=== PATIENT | female | born 1955 | race Caucasian/White ===

== ENCOUNTER → 2021-01-13 | Outpatient (CLI) | LOC: M LABSMTC 13:17 | PROVIDERS: ATTEND Anesthesiology | DX: Z01.818 Encounter for other preprocedural examination (principal); Z11.52 Encounter for screening for COVID-19 ==

== ENCOUNTER → 2021-01-20 | Outpatient (REF) | payer MEDICARE, MEDICAID ==
[2021-01-23 17:07] LABS: TOPIRAMATE LEVEL 22.3 ug/mL (2.0-25.0)
== END ==
LOC: M SHH 15:50
PROVIDERS: ATTEND Physician Assistant Medical
DX: R56.9 Unspecified convulsions (principal); Z51.81 Encounter for therapeutic drug level monitoring; Z79.899 Other long term (current) drug therapy

== ENCOUNTER → 2021-01-20 | Outpatient (REF) | payer MEDICARE, MEDICAID ==
[2021-01-20 16:19] LABS: BASO % 0.2 % (0.0-1.0); EOS % 0.4 % (0.0-3.0); HEMATOCRIT 29.4 % (36.0-47.0); HEMOGLOBIN 8.6 g/dl (12.0-15.5); LYMPH # 0.8 10^3/uL (1.5-5.0); LYMPH % 16.4 % (24.0-44.0); MEAN CORPUSCULAR HEMOGLOBIN 28.8 pg (27.0-33.0); MEAN CORPUSCULAR HGB CONC 29.3 g/dl (32.0-36.5); MEAN CORPUSCULAR VOLUME 98.3 fl (80.0-96.0); MONO # 0.4 10^3/uL (0.0-0.8); MONO % 8.1 % (2.0-8.0); NEUTROPHILS # 3.6 10^3/uL (1.5-8.5); NEUTROPHILS % 71.7 % (36.0-66.0); PLATELET COUNT, AUTOMATED 160 10^3/uL (150-450); RED BLOOD COUNT 2.99 10^6/uL (4.00-5.40); WHITE BLOOD COUNT 5.1 10^3/uL (4.0-10.0)
[2021-01-20 16:52] LABS: ALBUMIN 2.8 GM/DL (3.2-5.2); BILIRUBIN,TOTAL 0.5 MG/DL (0.2-1.0); CALCIUM LEVEL 8.8 MG/DL (8.8-10.2); CREATININE FOR GFR 1.08 MG/DL (0.55-1.30); GLOMERULAR FILTRATION RATE 54.4 (>45); POTASSIUM SERUM 3.8 MEQ/L (3.5-5.1); TOTAL PROTEIN 6.5 GM/DL (6.4-8.2)
== END ==
LOC: M SHH 15:53
PROVIDERS: ATTEND Internal Medicine Hematology & Oncology
DX: C79.31 Secondary malignant neoplasm of brain (principal); I63.139 Cerebral infarction due to embolism of unspecified carotid artery; G91.9 Hydrocephalus, unspecified; G40.109 Localization-related (focal) (partial) symptomatic epilepsy and epileptic syndromes with simple partial seizures, not intractable, without status epilepticus; D64.81 Anemia due to antineoplastic chemotherapy; E87.8 Other disorders of electrolyte and fluid balance, not elsewhere classified; C34.90 Malignant neoplasm of unspecified part of unspecified bronchus or lung; Z51.81 Encounter for therapeutic drug level monitoring; Z79.899 Other long term (current) drug therapy